=== PATIENT | female | born 1995 | race Caucasian/White ===

== ENCOUNTER 2022-10-31 08:53 | Inpatient (IN) | payer OTHER ==
[2022-10-31] MEDS ORDERED: CARBOPROST TROMETHAMINE 250 MCG/ML 1 ML AMP IM PRN (09:12)
[2022-10-31] MEDS ORDERED: METHYLERGONOVINE 0.2 MG/ML 1 ML AMP IM PRN (09:12)
[2022-10-31] MEDS ORDERED: OXYTOCIN 10 UNIT/ML 1 ML VIAL IM PRN (09:12)
[2022-10-31] MEDS ORDERED: TRANEXAMIC 1,000 MG/100ML-NACL 1,000 MG in EMPTY BAG 1 BAG IV PRN (09:12)
[2022-10-31] MEDS ORDERED: AMPICILLIN 2,000 MG in SODIUM CHLORIDE 0.9% 100 ML IVPB STA (09:12)
[2022-10-31] MEDS ORDERED: miSOPROStoL 200 MCG TAB PO PRN (09:12)
[2022-10-31] MEDS ORDERED: TERBUTALINE 1 MG/ML VIAL SQ PRN (09:12)
[2022-10-31] MEDS ORDERED: LIDOCAINE 0.5% (PF) 5 MG/ML (50 ML SDV) SQ PRN (09:12)
[2022-10-31] MEDS ORDERED: OXYTOCIN 30 UNITS/500 ML NS 30 UNIT in SALINE 1 500ML.BAG IV SCH (09:15)
[2022-10-31] MEDS: LACTATED RINGERS 1,000 ML IV SCH ×3 (09:32→12:56)
[2022-10-31 09:43] LABS: Basophils % (A) 0 %; Eosinophils # (A) 0.1 k/uL (0-0.7); Eosinophils % (A) 1 %; HCT 34.7 % (34.0-46.0); HGB 11.8 gm/dL (11.4-16.0); Lymphocytes % (A) 12 %; MCH 31.6 pg (25.0-35.0); Mean Platelet Volume 7.5; Monocytes # (A) 0.9 k/uL (0-1.0); Monocytes % (A) 5 %; Neutrophils # (A) 13.7 k/uL (1.3-7.7); Neutrophils % (A) 80 %; Platelet Count 388 k/uL (150-450); RBC 3.73 m/uL (3.80-5.40); RDW 13.1 % (11.5-15.5); WBC 17.1 k/uL (3.8-10.6)
[2022-10-31] MEDS ORDERED: ROPIVACAINE 5 MG/ML 30 ML VIAL ONE (09:47)
[2022-10-31] MEDS ORDERED: SODIUM CHLORIDE 0.9% 250 ML BAG ONE (09:47)
[2022-10-31] MEDS ORDERED: fentaNYL (PF) 50 MCG/ML 5 ML AMP ONE (09:47)
[2022-10-31] MEDS: AMPICILLIN 1,000 MG in SODIUM CHLORIDE 0.9% 50 ML IVPB SCH (13:24)
[2022-10-31] MEDS ORDERED: ROPIVACAINE 225 MG, fentaNYL (PF). 450 MCG in SODIUM CHLORIDE 0.9% 171 ML EPIDURAL ONE (13:54)
[2022-10-31] MEDS ORDERED: diphenhydrAMINE 50 MG CAP PO PRN (14:18)
[2022-10-31] MEDS ORDERED: HYDROCORTISONE 2.5% RECTAL CREAM 30 GM TUBE RECTAL PRN (14:18)
[2022-10-31] MEDS ORDERED: LANOLIN CREAM 5 GM TUBE TOPICAL PRN (14:18)
[2022-10-31] MEDS ORDERED: SIMETHICONE 80 MG CHEWABLE PO PRN (14:18)
[2022-10-31] MEDS ORDERED: BENZOCAINE/MENTHOL SPRAY 1 GM/SPRAY AEROSOL TOPICAL PRN (14:18)
[2022-10-31] MEDS ORDERED: ZOLPIDEM 5 MG TAB PO PRN (14:18)
[2022-10-31] MEDS ORDERED: diphenhydrAMINE 25 MG CAP PO PRN (14:18)
[2022-10-31] MEDS ORDERED: MEASLES-MUMPS-RUBELLA VACC/PF 12,500 UNIT/0.5 ML VIAL SQ ONE (14:18)
--- NOTE | 2022-10-31 16:36 | P.HPOB ---
History of Present Illness H&P Date: 10/31/22 Chief Complaint: SROM 26 year old presents at 38 weeks 1 day with SROM at midnight. She presented this morning after 8 AM, her cervix was 5, 80, -2 station. She is hanna irregularly. heart tones category 1. Review of Systems All systems: negative Constitutional: Denies chills, Denies fever Eyes: denies blurred vision, denies pain Ears, nose, mouth and throat: Denies headache, Denies sore throat Cardiovascular: Denies chest pain, Denies shortness of breath Respiratory: Denies cough Gastrointestinal: Denies abdominal pain, Denies diarrhea, Denies nausea, Denies vomiting Genitourinary: Denies dysuria, Denies hematuria Musculoskeletal: Denies myalgias Integumentary: Denies pruritus, Denies rash Neurological: Denies numbness, Denies weakness Psychiatric: Denies anxiety, Denies depression Endocrine: Denies fatigue, Denies weight change Past Medical History Past Medical History: No Reported History History of Any Multi-Drug Resistant Organisms: None Reported Past Surgical History: No Surgical Hx Reported Past Anesthesia/Blood Transfusion Reactions: No Reported Reaction Past Psychological History: No Psychological Hx Reported Smoking Status: Never smoker Past Alcohol Use History: None Reported Past Drug Use History: None Reported - Past Family History Mother Family Medical History: Hyperlipidemia Medications and Allergies Home Medications Medication Instructions Recorded Confirmed Type Pnv No.154/Iron Fum/Folic Acid 1 tab PO DAILY 10/31/22 10/31/22 History [ Plus Vitamin Tablet] Allergies Allergy/AdvReac Type Severity Reaction Status Date / Time No Known Allergies Allergy Verified 10/31/22 09:02 Exam Osteopathic Statement: *. No significant issues noted on an osteopathic structural exam other than those noted in the History and Physical/Consult. Vital Signs Temp Pulse Resp BP Pulse Ox 10/31/22 15:35 93 16 110/59 10/31/22 15:05 88 16 145/79 98 10/31/22 14:45 100 115/67 10/31/22 14:30 98.6 F 107 H 18 112/64 10/31/22 14:15 96.3 F L 119 H 18 137/61 100 10/31/22 14:00 98.8 F 105 H 18 128/58 10/31/22 09:20 96.4 F L 105 H 18 120/66 98 10/31/22 09:01 98.0 F 105 H 18 120/66 98 Intake and Output 10/31/22 10/31/22 10/31/22 06:59 14:59 22:59 Output Total 150 Balance -150 Output: Output, Quantitative 150 Blood Loss Other: Weight 64.41 kg Heart: Regular rate and rhythm Lungs: Clear to auscultation bilaterally Abdomen: Soft, nontender Extremities: Negative Homans sign Results Result Diagrams: 10/31/22 09:06 Abnormal Lab Results - Last 24 Hours (Table) 10/31/22 Range/Units 09:06 WBC 17.1 H (3.8-10.6) k/uL RBC 3.73 L (3.80-5.40) m/uL Neutrophils # 13.7 H (1.3-7.7) k/uL Assessment and Plan (1) Spontaneous rupture of amniotic membranes Current Visit: Yes Status: Acute Code(s): [id number] - SNOMED Code(s): 308751181 (2) Normal labor Current Visit: Yes Status: Acute Code(s): O80 - ENCOUNTER FOR FULL-TERM UNCOMPLICATED DELIVERY; Z37.9 - OUTCOME OF DELIVERY, UNSPECIFIED SNOMED Code(s): 42623888 Plan: 1. expectant managment, IV antibiotic and anticipate normal vaginal delivery
--- NOTE | 2022-10-31 16:37 | P.PROBDLV ---
Vaginal Delivery Note - . Vaginal Delivery Note: 26 year old presents at 38 weeks 1 day with SROM at midnight. She presented this morning after 8 AM, her cervix was 5, 80, -2 station. She is hanna irregularly. heart tones category 1. When she was uncomfortable she got an epidural and was completely dilated at 1331. She pushed, delivered a viable male infant over intact perineum under epidural anesthesia at 1347. Head delivered OA, nuchal cord 1 easily reduced, anterior shoulder delivered gentle downward guidance for by posterior shoulder and rest of body. Nose and mouth bulb suctioned, cord clamped and cut, infant placed on mother's abdomen. Apgars 8, 9, weight 6 lbs. 13 oz. Placenta delivered spontaneously, intact with three-vessel cord at 1349. Vagina, cervix, perineum inspected. No lacerations noted. Estimated blood loss 200 mL. Mother and baby in stable condition.
[2022-10-31] MEDS: IBUPROFEN 600 MG TAB PO PRN (18:34)
[2022-10-31] MEDS: ACETAMINOPHEN TAB 325 MG TAB PO PRN (20:22)
[2022-10-31] MEDS: SENNOSIDES-DOCUSATE SODIUM 1 EACH TAB PO SCH (20:23)
[2022-11-01] MEDS: IBUPROFEN 600 MG TAB PO PRN (00:21)
[2022-11-01] MEDS: ACETAMINOPHEN TAB 325 MG TAB PO PRN ×2 (00:22→07:49)
[2022-11-01] MEDS: AMPICILLIN 1,000 MG in SODIUM CHLORIDE 0.9% 50 ML IVPB SCH (00:26)
[2022-11-01 05:39] VITALS: RESP 16
[2022-11-01 06:24] LABS: Basophils % (A) 0 %; Eosinophils # (A) 0.1 k/uL (0-0.7); Eosinophils % (A) 1 %; HCT 32.9 % (34.0-46.0); Lymphocytes # (A) 2.4 k/uL (1.0-4.8); Lymphocytes % (A) 17 %; MCH 31.9 pg (25.0-35.0); MCHC 33.6 g/dL (31.0-37.0); Mean Platelet Volume 7.7; Monocytes # (A) 0.8 k/uL (0-1.0); Monocytes % (A) 6 %; Neutrophils # (A) 10.4 k/uL (1.3-7.7); Neutrophils % (A) 74 %; Platelet Count 343 k/uL (150-450); RBC 3.46 m/uL (3.80-5.40); RDW 13.2 % (11.5-15.5); WBC 14.1 k/uL (3.8-10.6)
[2022-11-01] MEDS: SENNOSIDES-DOCUSATE SODIUM 1 EACH TAB PO SCH (07:49)
--- NOTE | 2022-11-01 08:17 | P.DS ---
Providers Date of admission: 10/31/22 09:15 Expected date of discharge: 11/01/22 Attending physician: Juli Nielsen Primary care physician: Stated None - Discharge Diagnosis(es) (1) Spontaneous rupture of amniotic membranes Current Visit: Yes Status: Resolved (2) Normal labor Current Visit: Yes Status: Resolved (3) Normal vaginal delivery Current Visit: Yes Status: Acute Hospital Course: Patient presented with spontaneous rupture membranes. She underwent a normal vaginal delivery. course was uneventful. She denies nausea, vomiting, chest pain, shortness of breath or calf pain. She will be discharged home day #1 in stable condition to follow-up with Dr. Nielsen in 6 weeks. Plan - Discharge Summary New Discharge Prescriptions: New Ibuprofen [Motrin] 600 mg PO Q6HR PRN #30 tab PRN Reason: Mild Pain (Scale 1 To 3) No Action Pnv No.154/Iron Fum/Folic Acid [ Plus Vitamin Tablet] 1 tab PO DAILY Discharge Medication List Pnv No.154/Iron Fum/Folic Acid [ Plus Vitamin Tablet] 1 tab PO DAILY 10/31/22 [History] Ibuprofen [Motrin] 600 mg PO Q6HR PRN #30 tab 11/01/22 [Rx] Follow up Appointment(s)/Referral(s): Juli Nielsen DO [Doctor of Osteopathic Medicine] - 6 Weeks Discharge Disposition: HOME SELF-CARE
[2022-11-01 15:40] VITALS: BP 98/62; PULSE 80; TEMP 98.3
== END 2022-11-01 16:15 | disposition home or self-care (01) | DRG 560 ==
LOC: FBPOP 08:53 → 4FBP 09:15
PROVIDERS: ADMIT Obstetrics & Gynecology; ATTEND Obstetrics & Gynecology
PROC: 10E0XZZ Delivery of Products of Conception, External Approach (ICD-10-PCS; principal; 2022-11-01)
DX: O42.92 Full-term premature rupture of membranes, unspecified as to length of time between rupture and onset of labor (principal); O69.81X0 Labor and delivery complicated by cord around neck, without compression, not applicable or unspecified; Z37.0 Single live birth; Z3A.38 38 weeks gestation of pregnancy
CPT/HCPCS: 59025; 84112; 85025; 86850; 86900; 86901; 90707; 99213